=== PATIENT | female | born 1940 | race Caucasian/White ===

== ENCOUNTER 2022-04-13 14:49 | Inpatient (IN) ==
[2022-04-13] MEDS ORDERED: ONDANSETRON 4 MG/2 ML VIAL IV ONE (17:00)
[2022-04-13] MEDS ORDERED: MORPHINE 2 MG/1 ML SYRINGE IV STA (17:00)
[2022-04-13 17:18] LABS: Basophils % 0.2 % (0.0-0.8); Eosinophils # 0.1 10*3/uL (0.0-0.87); Eosinophils % 0.6 % (0.00-10.9); Hematocrit 41.1 VOL% (35.7-47.0); Immature Granulocytes % 0.7 %; Immature Granulocytes Absolute 0.07 #; Lymphocytes # 1.3 10*3/uL (1.4-4.0); Mean Corpuscular HGB Conc 31.6 GM/DL (32-36); Mean Platelet Volume 9.7 FL (9.6-12.0); Monocytes # 0.5 10*3/uL (0.11-0.8); Monocytes % 4.7 % (1.7-12.7); Neutrophils % 80.8 % (38.7-73.9); Platelet Count 257 T/CUMM (130-400); Red Blood Count 4.67 MC/CUMM (3.8-5.5); Red Cell Distribution Width 13.2 % (9.3-17.3); White Blood Count 9.8 T/CUMM (4-12)
[2022-04-13 17:39] LABS: Alanine Aminotransferase 17 U/L (13-56); Albumin 3.6 G/DL (3.4-5.0); Alkaline Phosphatase 90 U/L (45-117); Aspartate Amino Transferase 23 U/L (0-37); Bilirubin,Total < 0.39 MG/DL (0.20-1.00); Blood Urea Nitrogen 14 MG/DL (7-18); Calcium 9.3 MG/DL (8.5-10.1); Carbon Dioxide 27 MMOL/L (21-32); Chloride 110 MMOL/L (98-107); Glucose 114 MG/DL (74-106); Potassium 3.7 MMOL/L (3.5-5.1); Sodium 143 MMOL/L (136-145); Total Protein 7.4 G/DL (6.4-8.2)
[2022-04-13] MEDS ORDERED: guaiFENesin/DM ER 600-30 MG TABLET PO PRN (17:39)
[2022-04-13] MEDS ORDERED: diphenhydrAMINE CAP 25 MG CAPSULE PO PRN (17:39)
[2022-04-13] MEDS ORDERED: hydrALAZINE 20 MG/1 ML VIAL IV PRN (17:39)
[2022-04-13] MEDS ORDERED: ZALEPLON 5 MG CAPSULE PO PRN (17:39)
[2022-04-13] MEDS ORDERED: GLUCAGON 1 MG VIAL IM PRN (17:39)
[2022-04-13] MEDS ORDERED: NICOTINE 21 MG/24 HR PATCH TRANSDERM PRN (17:39)
[2022-04-13 17:44] LABS: INR 0.9; PT Patient Result 10.5 SECS (10.5-12.0); Partial Thromboplastin Time 28.3 SECS (23.8-32.1)
[2022-04-13] MEDS ORDERED: DEXTROSE 10% 250 ML BAG IV PRN (17:52)
[2022-04-13] MEDS ORDERED: HEPARIN 5,000 UNIT/1 ML VIAL SUBCUT SCH (21:00)
[2022-04-13] MEDS: MORPHINE 2 MG/1 ML SYRINGE IV PRN (21:16)
[2022-04-13] MEDS ORDERED: amLODIPine 10 MG TABLET PO ONE (22:40)
[2022-04-14] MEDS: MORPHINE 2 MG/1 ML SYRINGE IV PRN (02:46)
[2022-04-14 05:28] LABS: Basophils % 0.2 % (0.0-0.8); Eosinophils # 0.1 10*3/uL (0.0-0.87); Eosinophils % 0.6 % (0.00-10.9); Hematocrit 41.4 VOL% (35.7-47.0); Hemoglobin 12.8 GM/DL (12.0-16.0); Immature Granulocytes % 0.6 %; Immature Granulocytes Absolute 0.05 #; Lymphocytes # 1.1 10*3/uL (1.4-4.0); Lymphocytes % 12.5 % (21.3-54.2); Mean Corpuscular HGB Conc 30.9 GM/DL (32-36); Mean Corpuscular Volume 88.7 FL (87-102); Mean Platelet Volume 10.1 FL (9.6-12.0); Monocytes # 0.5 10*3/uL (0.11-0.8); Monocytes % 6.4 % (1.7-12.7); Neutrophils % 79.7 % (38.7-73.9); Platelet Count 263 T/CUMM (130-400); Red Blood Count 4.67 MC/CUMM (3.8-5.5); Red Cell Distribution Width 13.5 % (9.3-17.3); White Blood Count 8.4 T/CUMM (4-12)
[2022-04-14 05:48] LABS: Calcium 8.6 MG/DL (8.5-10.1); Osmolality,Calculated 281.3 MOS/KG (273-304); Potassium 3.6 MMOL/L (3.5-5.1)
[2022-04-14] MEDS: LEVOTHYROXINE 50 MCG TABLET PO SCH (06:18)
[2022-04-14] MEDS ORDERED: buprenorphine HCL 0.3 MG/ML VIAL ONE (06:32)
[2022-04-14] MEDS ORDERED: fentaNYL 100 MCG/2 ML VIAL ONE (06:33)
[2022-04-14] MEDS ORDERED: DEXAMETHASONE 4 MG/1 ML VIAL ONE ×2 (06:35→08:42)
[2022-04-14] MEDS ORDERED: LIDOCAINE 1% 5 ML VIAL ONE (06:36)
[2022-04-14] MEDS ORDERED: ROPIVACAINE 0.5% 30 ML VIAL ONE (06:36)
[2022-04-14] MEDS ORDERED: GABAPENTIN 400 MG CAPSULE PO ONE (06:44)
[2022-04-14] MEDS ORDERED: VANCOMYCIN INJ 1,000 MG in SODIUM CHLORIDE 0.9% 250 ML IV ONE (07:00)
[2022-04-14] MEDS ORDERED: LACTATED RINGERS 1,000 ML IV SCH (07:00)
[2022-04-14] MEDS ORDERED: KETAMINE 500 MG/10 ML VIAL ONE (07:08)
[2022-04-14] MEDS ORDERED: ETOMIDATE 40 MG/20 ML VIAL IV ONE (07:39)
[2022-04-14] MEDS ORDERED: propofoL 200 MG/20 ML VIAL IV ONE (07:39)
[2022-04-14] MEDS ORDERED: BISACODYL 10 MG SUPP RECTAL PRN (07:46)
[2022-04-14] MEDS ORDERED: MAGNESIUM HYDROXIDE SUSP 30 ML UDCUP PO PRN (07:46)
[2022-04-14] MEDS ORDERED: LACTULOSE 20 GM/30 ML UDCUP PO PRN (07:46)
[2022-04-14] MEDS ORDERED: PROMETHAZINE 25 MG/1 ML VIAL IM PRN (07:46)
[2022-04-14] MEDS ORDERED: MORPHINE 2 MG/1 ML SYRINGE IV PRN ×2 (07:49→07:58)
[2022-04-14] MEDS ORDERED: ePHEDrine 50 MG/ML VIAL ONE (08:02)
[2022-04-14] MEDS ORDERED: LIDOCAINE 2% 5 ML VIAL ONE (08:02)
[2022-04-14] MEDS ORDERED: GLYCOPYRROLATE 0.4 MG/2 ML VIAL ONE (08:03)
[2022-04-14] MEDS ORDERED: ESMOLOL 100 MG/10 ML VIAL IV ONE (08:14)
[2022-04-14] MEDS ORDERED: ONDANSETRON 4 MG/2 ML VIAL ONE (08:42)
[2022-04-14] MEDS ORDERED: ONDANSETRON 4 MG/2 ML VIAL IV PRN (09:28)
[2022-04-14] MEDS: METOPROLOL SUCCINATE XL 25 MG TABLET PO SCH (10:15)
[2022-04-14] MEDS: amLODIPine 10 MG TABLET PO SCH (10:17)
[2022-04-14] MEDS: FONDAPARINUX 2.5 MG/0.5 ML SYRINGE SUBCUT SCH (17:49)
[2022-04-14] MEDS: DOCUSATE SODIUM 100 MG CAPSULE PO SCH (21:26)
[2022-04-15] MEDS: LEVOTHYROXINE 50 MCG TABLET PO SCH (05:46)
[2022-04-15 06:15] LABS: Basophils % 0.1 % (0.0-0.8); Eosinophils % 0.3 % (0.00-10.9); Hematocrit 33.6 VOL% (35.7-47.0); Hemoglobin 10.5 GM/DL (12.0-16.0); Immature Granulocytes % 0.7 %; Immature Granulocytes Absolute 0.07 #; Lymphocytes # 1.5 10*3/uL (1.4-4.0); Lymphocytes % 14.4 % (21.3-54.2); Mean Corpuscular HGB Conc 31.3 GM/DL (32-36); Mean Corpuscular Volume 89.1 FL (87-102); Mean Platelet Volume 10.1 FL (9.6-12.0); Monocytes % 9.4 % (1.7-12.7); Neutrophils % 75.1 % (38.7-73.9); Platelet Count 229 T/CUMM (130-400); Red Blood Count 3.77 MC/CUMM (3.8-5.5); Red Cell Distribution Width 13.5 % (9.3-17.3); White Blood Count 10.1 T/CUMM (4-12)
[2022-04-15 06:30] LABS: Calcium 8.6 MG/DL (8.5-10.1); Osmolality,Calculated 280.4 MOS/KG (273-304); Potassium 3.9 MMOL/L (3.5-5.1)
[2022-04-15] MEDS: METOPROLOL SUCCINATE XL 25 MG TABLET PO SCH (08:39)
[2022-04-15] MEDS: DOCUSATE SODIUM 100 MG CAPSULE PO SCH ×2 (08:39→21:10)
[2022-04-15] MEDS: amLODIPine 10 MG TABLET PO SCH (08:41)
[2022-04-15] MEDS: ACETAMINOPHEN 325 MG TABLET PO PRN (16:26)
[2022-04-15] MEDS: FONDAPARINUX 2.5 MG/0.5 ML SYRINGE SUBCUT SCH (17:25)
[2022-04-16 05:13] LABS: Basophils % 0.3 % (0.0-0.8); Eosinophils # 0.1 10*3/uL (0.0-0.87); Eosinophils % 0.8 % (0.00-10.9); Hematocrit 31.4 VOL% (35.7-47.0); Hemoglobin 9.8 GM/DL (12.0-16.0); Immature Granulocytes % 0.5 %; Immature Granulocytes Absolute 0.05 #; Lymphocytes # 1.3 10*3/uL (1.4-4.0); Lymphocytes % 12.2 % (21.3-54.2); Mean Corpuscular HGB Conc 31.2 GM/DL (32-36); Monocytes % 9.1 % (1.7-12.7); Neutrophils % 77.1 % (38.7-73.9); Platelet Count 195 T/CUMM (130-400); Red Blood Count 3.53 MC/CUMM (3.8-5.5); Red Cell Distribution Width 13.6 % (9.3-17.3); White Blood Count 10.8 T/CUMM (4-12)
[2022-04-16 05:39] LABS: Calcium 8.1 MG/DL (8.5-10.1); Free T4 (Free Thyroxine) 1.09 NG/DL (0.76-1.46); Osmolality,Calculated 279.5 MOS/KG (273-304); Potassium 3.9 MMOL/L (3.5-5.1)
[2022-04-16] MEDS: LEVOTHYROXINE 50 MCG TABLET PO SCH (06:42)
[2022-04-16] MEDS: DOCUSATE SODIUM 100 MG CAPSULE PO SCH ×2 (09:10→20:32)
[2022-04-16] MEDS: METOPROLOL SUCCINATE XL 25 MG TABLET PO SCH (09:10)
[2022-04-16] MEDS: amLODIPine 10 MG TABLET PO SCH (10:59)
[2022-04-16 14:36] LABS: Bilirubin,Urine Negative (Negative); Blood, Urine Negative (Negative); Glucose,Urine (UA) Negative (Negative); Ketones,Urine Trace mg/dL (Negative); Nitrite,Urine Negative (Negative); Protein,Urine Negative (Negative); Urine Appearance Clear (Clear); Urine Color Yellow (Yellow); Urine Specific Gravity 1.015 (1.001-1.035); Urine Urobilinogen 0.2 eU/dL (<2.0)
[2022-04-16 14:38] LABS: Mucus,Urine Occasional /LPF (Occasional); RBC,Urine 2 /HPF (0-4); Squamous Epithelial Cell,Urine Occasional /HPF (0-10)
[2022-04-16] MEDS: FONDAPARINUX 2.5 MG/0.5 ML SYRINGE SUBCUT SCH (18:52)
[2022-04-17] MEDS: LEVOTHYROXINE 75 MCG TABLET PO SCH (05:50)
[2022-04-17] MEDS: DOCUSATE SODIUM 100 MG CAPSULE PO SCH ×2 (08:35→21:13)
[2022-04-17 08:38] LABS: Basophils % 0.4 % (0.0-0.8); Eosinophils # 0.1 10*3/uL (0.0-0.87); Eosinophils % 0.7 % (0.00-10.9); Hematocrit 27.2 VOL% (35.7-47.0); Hemoglobin 8.6 GM/DL (12.0-16.0); Immature Granulocytes % 0.6 %; Immature Granulocytes Absolute 0.07 #; Lymphocytes # 1.4 10*3/uL (1.4-4.0); Lymphocytes % 12.2 % (21.3-54.2); Mean Corpuscular HGB Conc 31.6 GM/DL (32-36); Mean Corpuscular Volume 87.5 FL (87-102); Monocytes # 0.9 10*3/uL (0.11-0.8); Monocytes % 8.3 % (1.7-12.7); Neutrophils % 77.8 % (38.7-73.9); Platelet Count 226 T/CUMM (130-400); Red Blood Count 3.11 MC/CUMM (3.8-5.5); Red Cell Distribution Width 13.2 % (9.3-17.3); White Blood Count 11.1 T/CUMM (4-12)
[2022-04-17 08:55] LABS: Calcium 8.1 MG/DL (8.5-10.1); Osmolality,Calculated 274.8 MOS/KG (273-304); Potassium 3.8 MMOL/L (3.5-5.1)
[2022-04-17] MEDS ORDERED: SODIUM CHLORIDE 0.9% 500 ML IV ONE (15:23)
[2022-04-17] MEDS: SODIUM CHLORIDE 0.9% 1,000 ML IV SCH (17:14)
[2022-04-17] MEDS: ACETAMINOPHEN 325 MG TABLET PO PRN (17:15)
[2022-04-17] MEDS: FONDAPARINUX 2.5 MG/0.5 ML SYRINGE SUBCUT SCH (17:17)
[2022-04-18 06:35] LABS: Basophils % 0.2 % (0.0-0.8); Eosinophils # 0.2 10*3/uL (0.0-0.87); Eosinophils % 1.2 % (0.00-10.9); Hematocrit 24.6 VOL% (35.7-47.0); Hemoglobin 7.8 GM/DL (12.0-16.0); Immature Granulocytes % 0.5 %; Immature Granulocytes Absolute 0.07 #; Lymphocytes # 1.2 10*3/uL (1.4-4.0); Lymphocytes % 8.6 % (21.3-54.2); Mean Corpuscular HGB Conc 31.7 GM/DL (32-36); Mean Corpuscular Volume 88.8 FL (87-102); Mean Platelet Volume 10.3 FL (9.6-12.0); Monocytes # 0.9 10*3/uL (0.11-0.8); Monocytes % 6.7 % (1.7-12.7); Neutrophils % 82.8 % (38.7-73.9); Platelet Count 247 T/CUMM (130-400); Red Blood Count 2.77 MC/CUMM (3.8-5.5); Red Cell Distribution Width 13.2 % (9.3-17.3); White Blood Count 14.1 T/CUMM (4-12)
[2022-04-18 07:07] LABS: Calcium 8.1 MG/DL (8.5-10.1); Osmolality,Calculated 276.7 MOS/KG (273-304); Potassium 3.9 MMOL/L (3.5-5.1)
[2022-04-18] MEDS: DOCUSATE SODIUM 100 MG CAPSULE PO SCH ×2 (09:22→22:03)
[2022-04-18] MEDS: SODIUM CHLORIDE 0.9% 1,000 ML IV SCH (09:22)
[2022-04-18] MEDS: LEVOTHYROXINE 75 MCG TABLET PO SCH (09:23)
[2022-04-18] MEDS ORDERED: BISACODYL 10 MG SUPP RECTAL ONE (11:00)
[2022-04-18 18:46] LABS: Hematocrit 30.2 VOL% (35.7-47.0); Hemoglobin 9.8 GM/DL (12.0-16.0)
[2022-04-19] MEDS: SODIUM CHLORIDE 0.9% 1,000 ML IV SCH (02:22)
[2022-04-19 04:53] LABS: Basophils % 0.4 % (0.0-0.8); Eosinophils # 0.4 10*3/uL (0.0-0.87); Eosinophils % 3.4 % (0.00-10.9); Hemoglobin 9.3 GM/DL (12.0-16.0); Immature Granulocytes % 0.9 %; Immature Granulocytes Absolute 0.09 #; Lymphocytes # 1.4 10*3/uL (1.4-4.0); Lymphocytes % 13.3 % (21.3-54.2); Mean Corpuscular HGB Conc 32.1 GM/DL (32-36); Mean Corpuscular Volume 88.7 FL (87-102); Mean Platelet Volume 10.1 FL (9.6-12.0); Monocytes # 0.8 10*3/uL (0.11-0.8); Monocytes % 7.7 % (1.7-12.7); Neutrophils % 74.3 % (38.7-73.9); Platelet Count 233 T/CUMM (130-400); Red Blood Count 3.27 MC/CUMM (3.8-5.5); Red Cell Distribution Width 13.2 % (9.3-17.3); White Blood Count 10.3 T/CUMM (4-12)
[2022-04-19 05:10] LABS: % Iron Saturation 11.3 % (18-50); Calcium 7.9 MG/DL (8.5-10.1); Osmolality,Calculated 274.7 MOS/KG (273-304)
[2022-04-19 05:18] LABS: Folate 11.76 NG/ML (5.38-24.0)
[2022-04-19] MEDS: LEVOTHYROXINE 75 MCG TABLET PO SCH (06:19)
[2022-04-19] MEDS ORDERED: FERROUS GLUCONATE 324 MG TABLET PO SCH (09:00)
[2022-04-19] MEDS ORDERED: FOLIC ACID 1 MG TABLET PO SCH (09:00)
[2022-04-19] MEDS: DOCUSATE SODIUM 100 MG CAPSULE PO SCH (09:00)
[2022-04-19] MEDS ORDERED: CHOLECALCIFEROL 1,000 UNIT TABLET PO SCH (09:00)
[2022-04-19 10:22] LABS: Mucus,Urine Occasional /LPF (Occasional); RBC,Urine 15-20 /HPF (0-4); Squamous Epithelial Cell,Urine Occasional /HPF (0-10)
[2022-04-19 10:23] LABS: Bilirubin,Urine Negative (Negative); Blood, Urine Small mg/dL (Negative); Glucose,Urine (UA) Negative (Negative); Ketones,Urine Negative (Negative); Nitrite,Urine Positive (Negative); Protein,Urine Negative (Negative); Urine Appearance Slightly Hazy (Clear); Urine Color Yellow (Yellow); Urine Specific Gravity 1.015 (1.001-1.035); Urine Urobilinogen 0.2 eU/dL (<2.0)
[2022-04-19] MEDS ORDERED: cephALEXin 500 MG CAPSULE PO SCH (11:00)
[2022-04-19 11:23] VITALS: BP 120/52
== END 2022-04-19 14:40 | disposition swing bed (61) | DRG 522 ==
LOC: EDUNIT# → EDBD → N.ED 14:49 → SUATTDRO 17:39 → N.EDINP 17:39 → N.3E 18:20
PROVIDERS: ADMIT Internal Medicine; ATTEND Internal Medicine